=== PATIENT | male | born 1960 | race Caucasian/White ===

== ENCOUNTER 2023-07-28 06:00 | Outpatient (RCR) | payer OTHER, SELFPAY | END 2023-08-26 23:59 | disposition home or self-care (01) | LOC: SPT 06:00 | PROVIDERS: Visit Provider Family Medicine | DX: M62.89 Other specified disorders of muscle (principal) | CPT/HCPCS: 97140; 97161; 97530 ==

== ENCOUNTER 2023-08-27 06:00 | Outpatient (RCR) | payer OTHER, SELFPAY | END 2023-09-26 23:59 | disposition home or self-care (01) | LOC: SPT 06:00 | PROVIDERS: Visit Provider Family Medicine | DX: M62.89 Other specified disorders of muscle (principal) | CPT/HCPCS: 97110; 97140; 97530 ==